=== PATIENT | male | born 1950 | race Caucasian/White ===

== ENCOUNTER → 2016-09-04 | Outpatient (CLI) | payer MEDICARE ==
[~2016-09-04] MED LIST: AMIO100T4 PO; AMIO400T4 PO; AMLO10TA2 PO; ASPI-496 PO; ASPI325T92 PO; ATOR40TA78 PO; CARV-39 PO; LOSA25TA5 PO; NEXIUM PO; OMEP-110 PO
== END | disposition home or self-care (01) ==
LOC: CVU 13:30
PROVIDERS: ATTEND Surgery Vascular Surgery
DX: Z01.818 Encounter for other preprocedural examination (principal); I70.213 Atherosclerosis of native arteries of extremities with intermittent claudication, bilateral legs; I10 Essential (primary) hypertension; Z87.891 Personal history of nicotine dependence; Z95.820 Peripheral vascular angioplasty status with implants and grafts
CPT/HCPCS: 93922; 93925

== ENCOUNTER → 2016-12-30 | Outpatient (CLI) | payer MEDICARE | END | disposition home or self-care (01) | LOC: CFH 14:16 | PROVIDERS: ATTEND Internal Medicine Critical Care Medicine | DX: J84.89 Other specified interstitial pulmonary diseases (principal); J92.9 Pleural plaque without asbestos | CPT/HCPCS: 71020; 71250 ==

== ENCOUNTER → 2017-12-29 | Outpatient (CLI) | payer MEDICARE ==
[~2017-12-29] MED LIST changes: -AMIO400T4 PO; +AMIO400T5 PO; +OMNIPAQUE 350 MG/ML, 100ML BOTTLE ONE
== END | disposition home or self-care (01) ==
LOC: CFH 13:04
PROVIDERS: ATTEND Otolaryngology Facial Plastic Surgery
DX: M54.2 Cervicalgia (principal); R68.84 Jaw pain
CPT/HCPCS: 70491; 82565; Q9967